=== PATIENT | female | born 1950 | race Caucasian/White ===

== ENCOUNTER 2024-11-29 18:59 | Emergency (ER) | payer MEDICARE, SELFPAY ==
--- NOTE | 2024-11-29 19:04 | ED_ITS ---
<Statement entered by Mariajose Marcum DO - 11/29/24 23:49> I was consulted by the IFRA[facility], and we discussed the complexity of the problems being addressed. I approved the treatment and management plan for this patient's care in the emergency department, thus performing a substantive portion of the medical decision making. Mariajose Marcum DO Discharge Plan Disposition Patient Disposition: Home, Self-Care Prescriptions Prescriptions: No Action No Known Home Medications Referrals Follow up/Referrals: Provider,Referral, MD [Primary Care Provider] - See instructions Clinical Impressions Clinical Impression: Shortness of breath Print Language Print Language: Ecuadorean Discharge ED Provider: Mariajose Marcum HPI <KIMBERLY Wright - Last Filed: 11/29/24 21:52> General Chief Complaint: Shortness of Breath/Dyspnea Stated Complaint: Weak; SOA Time Seen by Provider: 11/29/24 19:04 History of Present Illness HPI narrative: Patient presents for evaluation of dyspnea on exertion and fatigue. Patient has a longstanding history of chronic atrial fibrillation maintained on a Watchman device. Most recently she had an hospitalization for bradycardia with heart rate down into the 20s. She is being followed at the [facility] and is not from her local area. She was changed from long-acting beta-herberth to short acting beta-herberth. Patient has been doing well and was visiting family however today she noted that she was having exercise intolerance even with light exertion including just walking around. She does not feel short of breath at rest she has no chest pain fever chills mops this hematochezia melena nausea vomit diarrhea. Related Data Home Medications ?Medication ?Instructions ?Recorded ?Confirmed No Known Home Medications 11/29/24 11/29/24 Allergies Allergy/AdvReac Type Severity Reaction Status Date / Time No Known Allergies Allergy Verified 11/29/24 19:14 [facility] <KIMBERLY Wright - Last Filed: 11/29/24 21:52> [facility] Disclaimer: The information contained in this section may have been updated after the patient was seen, as this information can be updated by other users. Social History Smoking Status: Former smoker alcohol intake: never current occupational status: employed Travel in the last 8 weeks?: Inside the [place] <KIMBERLY Wright - Last Filed: 11/29/24 21:52> ROS Obtained: Yes Systems reviewed as appropriate & no additional complaints except as documented Physical Exam <KIMBERLY Wright - Last Filed: 11/29/24 21:52> General General appearance: alert Respiratory Respiratory exam: Present normal lung sounds bilaterally Cardiovascular Cardiovascular exam: Present irregular rhythm Neurological Exam Neurological exam: Present alert, oriented X3 and CN II-XII intact HEART Score <KIMBERLY Wright - Last Filed: 11/29/24 21:52> HEART Score HEART Score assessment performed?: No Critical Care <KIMBERLY Wright - Last Filed: 11/29/24 21:52> Critical Care Time Critical Care Time: No Medical Decision Making <KIMBERLY Wright - Last Filed: 11/29/24 21:52> Donald Inquiry Pt receiving controlled substance: No Vital Signs Vital Signs: 11/29/24 19:06 11/29/24 19:40 Temperature 98.1 F 98.2 F Temperature Source Oral Oral Pulse Rate 65 Pulse Rate [Right Brachial] 89 Respiratory Rate 17 17 Blood Pressure 153/101 H Blood Pressure [Right Arm] 143/89 H Blood Pressure Mean [Right Arm] 107 Blood Pressure Source Automatic Cuff Blood Pressure Source [Right Arm] Automatic Cuff Blood Pressure Position Sitting Blood Pressure Position [Right Arm] Sitting 02 Sat by Pulse Oximetry 94 L Oxygen Delivery Method Room Air Room Air MDM Narrative Medical Decision Narrative: In summary patient is a 74-year-old female who presents to the emergency department for evaluation of dyspnea on exertion and fatigue. Patient is initially normotensive with a blood pressure 143/89 at the time of my exam her heart rate is irregular but 89 with atrial fibrillation on the bedside monitor breathing 17 times a minute satting at 94% on room air upon arrival, afebrile at 90.1. Physical exam exam is remarkable for clear breath sounds with no increased work of breathing [place] Coma Score 15 patient is awake alert and greer ented to person place circumstance abdomen soft nontender no rebound or guarding no rigidity. Bowel sounds normal active patient has no focal neurologic deficits and moves all 4 extremities with normal gait and station. Differential diagnosis includes PE versus ACS versus A-fib RVR versus electrolyte abnormality etc. I had a shared decision-making discussion with the patient and her presentation and she has significant concerns for possible cardiac or pulmonary cause of her symptoms. In addition when she initially arrived her EKG shows A- fib RVR with a rate of 116. Patient however was concerned only with bradycardia as her heart rate was down in the 20s which caused her admission 2 weeks ago. 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 Patient was given strict return precautions and patient verbalized understanding agreement. <Marijaose Marcum, DO - Last Filed: 11/29/24 21:20> Vital Signs Vital Signs: 11/29/24 19:06 11/29/24 19:40 Temperature 98.1 F 98.2 F Temperature Source Oral Oral Pulse Rate 65 Pulse Rate [Right Brachial] 89 Respiratory Rate 17 17 Blood Pressure 153/101 H Blood Pressure [Right Arm] 143/89 H Blood Pressure Mean [Right Arm] 107 Blood Pressure Source Automatic Cuff Blood Pressure Source [Right Arm] Automatic Cuff Blood Pressure Position Sitting Blood Pressure Position [Right Arm] Sitting 02 Sat by Pulse Oximetry 94 L Oxygen Delivery Method Room Air Room Air ECG Data Tracing #1: Attestation: I reviewed this ECG and interpreted as documented below: ECG Narrative: Atrial fibrillation with rapid ventricular response with a ventricular to 116 bpm. No STEMI ECG initial impression date: 11/29/24 ECG initial impression time: 19:09
[2024-11-29 19:06] VITALS: BP 143/89; PULSE 89; RESP 17; TEMP 36.7; O2SAT 94; BMI 24.3
--- NOTE | 2024-11-29 19:06 | ECG_ITS ---
APPROVED REPORT Exam: Resting ECG HR:116 bpm ECG Measurements Heart Rate 116 AXES QRSd 96 QRS -19 QT 316 T 4 QTc 385 Conclusion ATRIAL FIBRILLATION WITH RAPID VENTRICULAR RESPONSE No STEMI Electronically signed by : ALLISON OLVERA, 12/02/2024 14:40:16
--- NOTE | 2024-11-29 19:29 | PC.NURSE ---
Pt traveling back to [place] and does not want any treatment. Pharmacy not entered.
[2024-11-29 19:40] VITALS: BP 153/101; PULSE 65; RESP 17; TEMP 36.8; O2SAT 97
== END 2024-11-29 19:42 | disposition home or self-care (01) ==
LOC: ER 19:43
PROVIDERS: Emergency Provider Emergency Medicine
DX: R06.02 Shortness of breath (principal); I48.20 Chronic atrial fibrillation, unspecified; Z87.891 Personal history of nicotine dependence
CPT/HCPCS: 93005; 99283